=== PATIENT | male | born 1975 | race Two or more races ===

== ENCOUNTER 2019-07-02 04:52 | Emergency (ER) | payer OTHER ==
[~2019-07-02] VITALS: Ht 177.8 cm; Wt 117.9 kg
[2019-07-02] MEDS ORDERED: LANTUS SOL100 UNIT/1 (04:58)
[2019-07-02] MEDS ORDERED: METFORMIN HCL1000 M2 (04:58)
== END 2019-07-02 09:27 | disposition home or self-care (01) ==
LOC: ER 04:52
DX: R07.89 Other chest pain (principal); R06.02 Shortness of breath; F06.4 Anxiety disorder due to known physiological condition